=== PATIENT | male | born 1955 | race Caucasian/White ===

== ENCOUNTER 2024-09-01 16:03 | Inpatient (IN) | payer MEDICARE, OTHER ==
[2024-09-01] VITALS (10 sets, daily range): BP systolic 73–123; BP diastolic 32–53; TEMP 97.8; O2SAT 99–100
[~2024-09-01] VITALS: Ht 167.6 cm; Wt 70.8 kg
[2024-09-01] MEDS: IV NS 0.9% 500 ML BAG IV ONE (17:00)
[2024-09-01 17:27] LABS: BASOPHILS # (AUTO) 0.1 K/uL (0.0-0.2); BASOPHILS % (AUTO) 0.5 % (0.0-2.0); LYMPHOCYTES # (AUTO) 1.6 K/uL (0.8-4.8); LYMPHOCYTES % (AUTO) 13.5 % (20.0-44.0); MEAN CORPUSCULAR HEMOGLOBIN 31 PG (26.0-33.0); MEAN CORPUSCULAR HGB CONC 32 g/dl (31.0-36.0); MEAN CORPUSCULAR VOLUME 98 fL (80-96); MONOCYTES # (AUTO) 0.5 K/uL (0.1-1.30); MONOCYTES % (AUTO) 4.5 % (2.0-12.0); NEUTROPHILS # (AUTO) 9.5 K/uL (1.8-8.9); NEUTROPHILS % (AUTO) 81.5 % (43.0-81.0); PLATELET COUNT (AUTO) 194 K/uL (150-450); RED BLOOD CELL COUNT(AUTO) 1.63 MIL/uL (4.5-6.0); WHITE BLOOD COUNT (AUTO) 11.7 K/uL (4.3-11.0)
[2024-09-01 17:34] LABS: LACTIC ACID 1.6 mmol/L (0.4-2.0)
[2024-09-01 17:35] LABS: HEMATOCRIT 16 % (39-51); HEMOGLOBIN 5.1 g/dL (13.5-17.5)
[2024-09-01 17:59] LABS: BASOPHILS % (MANUAL) 0 % (0.0-2.0); EOSINOPHILS % (MANUAL) 0 % (0-4); LYMPHOCYTES % (MANUAL) 12 % (16-48); MONOCYTES % (MANUAL) 6 % (0-11.0); NEUTROPHILS % (MANUAL) 82 (42-76); PLATELET ESTIMATE ADEQUATE
[2024-09-01 18:38] LABS: ALANINE AMINOTRANSFERASE 9 U/L (12-78); ALBUMIN 2.9 g/dL (3.4-5.0); ALKALINE PHOSPHATASE 64 U/L (46-116); ASPARTATE AMINOTRANSFERASE 10 U/L (15-37); BILIRUBIN,DIRECT 0.2 mg/dL (0.0-0.2); BILIRUBIN,TOTAL 0.5 mg/dL (0.2-1.0); CALCIUM, SERUM 9.4 mg/dL (8.5-10.1); CARBON DIOXIDE 18 mmol/L (21-32); CHLORIDE 108 mmol/L (98-107); GLUCOSE 104 mg/dL (74-106); SODIUM SERUM 143 mmol/L (136-145); TOTAL PROTEIN, SERUM 6.7 g/dL (6.4-8.2)
[2024-09-01 18:40] LABS: CREATININE 8.4 mg/dL (0.6-1.3); POTASSIUM 8.1 mmol/L (3.5-5.1); UREA NITROGEN, BLOOD 166 mg/dL (7-18)
[2024-09-01] MEDS ORDERED: SODIUM ZIRCONIUM CYCLOSILICATE 10 GM POWD.PACK ONE (18:51)
[2024-09-01] MEDS ORDERED: SODIUM BICARBONATE SYR 50 MEQ/50 ML DISP.SYRIN ONE (18:51)
[2024-09-01] MEDS ORDERED: CALCIUM CHLORIDE 1,000 MG/10 ML DISP.SYRIN ONE (18:51)
[2024-09-01] MEDS ORDERED: INSULIN REGULAR, HUMAN 100 UNIT/ML 10 ML VIAL ONE (18:52)
[2024-09-01] MEDS ORDERED: DEXTROSE 50%-WATER 50 ML DISP.SYRIN ONE (18:53)
[2024-09-01] MEDS: ALBUTEROL FS 2.5 MG/3 ML VIAL.NEB NEB ONE (19:04)
[2024-09-01] MEDS ORDERED: ALBUTEROL FS 2.5 MG/3 ML VIAL.NEB ONE (19:06)
[2024-09-01] MEDS ORDERED: FINA5TAB4 PO (19:10)
[2024-09-01] MEDS ORDERED: ASPI-1169 PO (19:10)
[2024-09-01] MEDS ORDERED: LEVE750T10 PO (19:10)
[2024-09-01] MEDS ORDERED: ATEN100T PO (19:10)
[2024-09-01] MEDS ORDERED: DANT50CA PO (19:10)
[2024-09-01] MEDS ORDERED: LOSA50TA39 PO (19:10)
[2024-09-01] MEDS ORDERED: WARF2.5T85 PO (19:10)
[2024-09-01] MEDS ORDERED: TERA5CAP7 PO (19:10)
[2024-09-01] MEDS ORDERED: ATOR10TA PO (19:10)
[2024-09-01] MEDS: SODIUM ZIRCONIUM CYCLOSILICATE 10 GM POWD.PACK PO ONE (19:25)
[2024-09-01] MEDS: DEXTROSE 50%-WATER 50 ML DISP.SYRIN IV ONE (19:28)
[2024-09-01 19:29] LABS: INR > 10.00 (0.91-1.10); PROTHROMBIN TIME > 100.0 SECS (9.2-11.1)
[2024-09-01 19:30] LABS: PARTIAL THROMBOPLASTIN TIME 93.4 SEC (24.3-34.3)
[2024-09-01] MEDS ORDERED: Z GUARD REMEDY 4 OZ OINT TP PRN (19:30)
[2024-09-01] MEDS: CALCIUM CHLORIDE 1,000 MG/10 ML DISP.SYRIN IV ONE (19:30)
[2024-09-01] MEDS ORDERED: NOREPINEPHRINE 32 MG in IV NS 0.9% 218 ML IV PRN (19:30)
[2024-09-01] MEDS: INSULIN REGULAR, HUMAN 100 UNIT/ML 10 ML VIAL IV ONE (19:30)
[2024-09-01] MEDS: SODIUM BICARBONATE SYR 50 MEQ/50 ML DISP.SYRIN IV ONE (19:32)
[2024-09-01 20:35] LABS: APPEARANCE,URINE CLEAR (CLEAR); BILIRUBIN,URINE NEGATIVE (NEGATIVE); BLOOD, URINE 3+ Ery/uL (NEGATIVE); COLOR,URINE YELLOW (YELLOW); KETONES,URINE NEGATIVE (NEGATIVE); LEUKOCYTE ESTERASE ,URINE 1+ (NEGATIVE); NITRITE, URINE NEGATIVE (NEGATIVE); PROTEIN,URINE 1+ mg/dl (NEGATIVE); UGLUCOSE NEGATIVE (NEGATIVE); UROBILINOGEN,URINE 0.2 EU/dL (0.2)
[2024-09-01 20:53] LABS: ADD URINE CULTURE YES; BACTERIA,URINE Few /HPF (None Seen); RBC,URINE 21-50 /HPF (0-2)
[2024-09-01 21:56] LABS: ALANINE AMINOTRANSFERASE 9 U/L (12-78); ALBUMIN 2.8 g/dL (3.4-5.0); ALKALINE PHOSPHATASE 64 U/L (46-116); ASPARTATE AMINOTRANSFERASE 7 U/L (15-37); BILIRUBIN,TOTAL 0.3 mg/dL (0.2-1.0); CARBON DIOXIDE 21 mmol/L (21-32); CHLORIDE 111 mmol/L (98-107); GLUCOSE 116 mg/dL (74-106); SODIUM SERUM 148 mmol/L (136-145); TOTAL PROTEIN, SERUM 6.2 g/dL (6.4-8.2)
[2024-09-01] MEDS ORDERED: EPOETIN ALFA (10,000 UNIT) 10,000 UNIT/ML VIAL SQ ONE (22:00)
[2024-09-01 22:29] LABS: CALCIUM, SERUM 9.9 mg/dL (8.5-10.1)
[2024-09-01 22:57] LABS: CREATININE 8.2 mg/dL (0.6-1.3); POTASSIUM 7.3 mmol/L (3.5-5.1); UREA NITROGEN, BLOOD 166 mg/dL (7-18)
[2024-09-01] MEDS: NOREPINEPHRINE 8 MG in IV D5W 242 ML IV PRN (23:18)
[2024-09-02] VITALS (86 sets, daily range): BP systolic 62–163; BP diastolic 28–86; TEMP 97.4–99; O2SAT 85–100
[2024-09-02] MEDS: EPOETIN ALFA (10,000 UNIT) 10,000 UNIT/ML VIAL SQ ONE ×2 (02:30→08:50)
[2024-09-02 05:17] LABS: BASOPHILS # (AUTO) 0.1 K/uL (0.0-0.2); BASOPHILS % (AUTO) 0.2 % (0.0-2.0); EOSINOPHILS % (AUTO) 0.1 % (0.0-6.0); HEMATOCRIT 24 % (39-51); HEMOGLOBIN 7.9 g/dL (13.5-17.5); LYMPHOCYTES # (AUTO) 1.3 K/uL (0.8-4.8); LYMPHOCYTES % (AUTO) 4.8 % (20.0-44.0); MEAN CORPUSCULAR HEMOGLOBIN 30 PG (26.0-33.0); MEAN CORPUSCULAR HGB CONC 33 g/dl (31.0-36.0); MEAN CORPUSCULAR VOLUME 93 fL (80-96); MONOCYTES # (AUTO) 1.1 K/uL (0.1-1.30); MONOCYTES % (AUTO) 3.9 % (2.0-12.0); NEUTROPHILS # (AUTO) 24.9 K/uL (1.8-8.9); PLATELET COUNT (AUTO) 240 K/uL (150-450); WHITE BLOOD COUNT (AUTO) 27.4 K/uL (4.3-11.0)
[2024-09-02 05:32] LABS: ALBUMIN 3.3 g/dL (3.4-5.0); CALCIUM, SERUM 9.6 mg/dL (8.5-10.1); CREATININE 4.8 mg/dL (0.6-1.3); MAGNESIUM 2.6 mg/dL (1.8-2.4); PHOSPHORUS 3.3 mg/dL (2.5-4.9)
[2024-09-02] MEDS: FINASTERIDE (5 MG) 5 MG TABLET PO SCH (08:25)
[2024-09-02] MEDS: PANTOPRAZOLE 40 MG VIAL IV SCH (08:25)
[2024-09-02] MEDS: LEVETIRACETAM (250 MG) 250 MG TABLET PO SCH (08:26)
[2024-09-02] MEDS ORDERED: WARFARIN SODIUM 2.5 MG TABLET PO SCH (09:00)
[2024-09-02] MEDS ORDERED: DANTROLENE SODIUM 25 MG CAPSULE PO SCH (09:00)
[2024-09-02] MEDS: TERAZOSIN HCL 5 MG CAPSULE PO SCH (09:52)
[2024-09-02] MEDS: VANCOMYCIN 1 GM in IV D5W 250ml IV ONE (11:04)
[2024-09-02] MEDS: PIPERACILLIN /TAZOBACTAM 2.25 G in IV D5W 50 ML IV SCH (12:09)
[2024-09-02] MEDS: VANCOMYCIN 500 MG in IV D5W 100ml IV ONE (12:45)
[2024-09-02 16:34] LABS: INR 9.37 (0.91-1.10); PARTIAL THROMBOPLASTIN TIME 79.6 SEC (24.3-34.3); PROTHROMBIN TIME 85.8 SECS (9.2-11.1)
[2024-09-02] MEDS: ATORVASTATIN 10 MG TABLET PO SCH (21:44)
[2024-09-02 21:50] LABS: HIV-1 p24 ANTIGEN NON REACTIVE (NONREACTIVE); HIV-1/2 ANTIBODY NON REACTIVE (NONREACTIVE)
[2024-09-03] VITALS (61 sets, daily range): BP systolic 96–145; BP diastolic 17–85; TEMP 97.1–98.5; O2SAT 93–100
[2024-09-03 05:53] LABS: ALBUMIN 2.3 g/dL (3.4-5.0); CALCIUM, SERUM 8.5 mg/dL (8.5-10.1); CREATININE 5.6 mg/dL (0.6-1.3); MAGNESIUM 2.4 mg/dL (1.8-2.4); PHOSPHORUS 4.3 mg/dL (2.5-4.9); POTASSIUM 4.9 mmol/L (3.5-5.1)
[2024-09-03 05:58] LABS: BASOPHILS % (AUTO) 0.1 % (0.0-2.0); LYMPHOCYTES # (AUTO) 1.4 K/uL (0.8-4.8); LYMPHOCYTES % (AUTO) 12.3 % (20.0-44.0); MEAN CORPUSCULAR HEMOGLOBIN 31 PG (26.0-33.0); MEAN CORPUSCULAR HGB CONC 34 g/dl (31.0-36.0); MEAN CORPUSCULAR VOLUME 92 fL (80-96); MONOCYTES # (AUTO) 0.9 K/uL (0.1-1.30); MONOCYTES % (AUTO) 7.6 % (2.0-12.0); NEUTROPHILS # (AUTO) 9.3 K/uL (1.8-8.9); PLATELET COUNT (AUTO) 144 K/uL (150-450); RED CELL DISTRIBUTION WIDTH 14.2 % (11.5-15.0); WHITE BLOOD COUNT (AUTO) 11.6 K/uL (4.3-11.0)
[2024-09-03 06:10] LABS: BILIRUBIN,TOTAL 0.4 mg/dL (0.2-1.0)
[2024-09-03 06:37] LABS: HEMATOCRIT 14 % (39-51); HEMOGLOBIN 4.8 g/dL (13.5-17.5); RED BLOOD CELL COUNT(AUTO) 1.54 MIL/uL (4.5-6.0)
[2024-09-03 07:06] LABS: HEPATITIS B CORE AB, TOTAL Negative (Negative); HEPATITIS B SURFACE AB Non Reactive (.)
[2024-09-03 08:39] LABS: HEMOGLOBIN 4.9 g/dL (13.5-17.5)
[2024-09-03] MEDS ORDERED: PHYTONADIONE 10 MG in IV D5W 50 ML SQ ONE (09:30)
[2024-09-03] MEDS: PHYTONADIONE INJ 10 MG/1 ML AMPUL SQ ONE (09:57)
[2024-09-03 11:30] LABS: PROTHROMBIN TIME 65.7 SECS (9.2-11.1)
[2024-09-03 11:37] LABS: INR 7.04 (0.91-1.10); PARTIAL THROMBOPLASTIN TIME 79.5 SEC (24.3-34.3)
[2024-09-03 11:38] LABS: ANISOCYTOSIS 1+; BASOPHILS % (MANUAL) 0 % (0.0-2.0); EOSINOPHILS % (MANUAL) 0 % (0-4); HYPOCHROMASIA 1+; LYMPHOCYTES % (MANUAL) 11 % (16-48); MONOCYTES % (MANUAL) 6 % (0-11.0); NEUTROPHILS % (MANUAL) 83 (42-76); PLATELET ESTIMATE DECREASED
[2024-09-03 16:56] LABS: HEMOGLOBIN 9.3 g/dL (13.5-17.5)
[2024-09-03 17:14] LABS: PARTIAL THROMBOPLASTIN TIME 57.1 SEC (24.3-34.3); PROTHROMBIN TIME 42.4 SECS (9.2-11.1)
[2024-09-03 17:27] LABS: INR 4.41 (0.91-1.10)
[2024-09-04] VITALS (26 sets, daily range): BP systolic 100–166; BP diastolic 41–126; TEMP 96.5–98.3; O2SAT 96–100
[2024-09-04 08:23] LABS: BASOPHILS % (AUTO) 0.1 % (0.0-2.0); HEMATOCRIT 23 % (39-51); HEMOGLOBIN 8.1 g/dL (13.5-17.5); LYMPHOCYTES # (AUTO) 1.3 K/uL (0.8-4.8); MEAN CORPUSCULAR HEMOGLOBIN 33 PG (26.0-33.0); MEAN CORPUSCULAR HGB CONC 36 g/dl (31.0-36.0); MEAN CORPUSCULAR VOLUME 91 fL (80-96); MONOCYTES # (AUTO) 0.8 K/uL (0.1-1.30); MONOCYTES % (AUTO) 7.1 % (2.0-12.0); NEUTROPHILS # (AUTO) 8.6 K/uL (1.8-8.9); NEUTROPHILS % (AUTO) 80.8 % (43.0-81.0); PLATELET COUNT (AUTO) 139 K/uL (150-450); RED BLOOD CELL COUNT(AUTO) 2.48 MIL/uL (4.5-6.0); RED CELL DISTRIBUTION WIDTH 14.1 % (11.5-15.0); WHITE BLOOD COUNT (AUTO) 10.7 K/uL (4.3-11.0)
[2024-09-04 08:35] LABS: INR 1.91 (0.91-1.10); PARTIAL THROMBOPLASTIN TIME 43.2 SEC (24.3-34.3); PROTHROMBIN TIME 19.4 SECS (9.2-11.1)
[2024-09-04] MEDS: PANTOPRAZOLE 40 MG TABLET.DR PO SCH (08:37)
[2024-09-04 09:01] LABS: CALCIUM, SERUM 8.9 mg/dL (8.5-10.1); CREATININE 5.7 mg/dL (0.6-1.3); MAGNESIUM 2.4 mg/dL (1.8-2.4); POTASSIUM 4.7 mmol/L (3.5-5.1)
[2024-09-04 11:59] LABS: LYMPHOCYTES % (MANUAL) 12 % (16-48); NEUTROPHILS % (MANUAL) 80 (42-76)
[2024-09-04 12:00] LABS: ANISOCYTOSIS 1+; MONOCYTES % (MANUAL) 8 % (0-11.0); PLATELET ESTIMATE DECREASED
[2024-09-04] MEDS: VANCOMYCIN POST DIALYSIS 500MG IV PRN (16:30)
[2024-09-04 21:09] LABS: OCCULT BLOOD STOOL POSITIVE (NEGATIVE)
[2024-09-04] MEDS ORDERED: hydrALAZINE HCL IV 20 MG VIAL IV PRN (23:30)
[2024-09-05] VITALS (9 sets, daily range): BP systolic 131–165; BP diastolic 43–57; TEMP 96.5–98.2; O2SAT 96–98
[2024-09-05] MEDS: hydrALAZINE HCL IV 20 MG VIAL IV PRN (01:07)
[2024-09-05 04:52] LABS: BASOPHILS % (AUTO) 0.1 % (0.0-2.0); HEMATOCRIT 25 % (39-51); HEMOGLOBIN 8.7 g/dL (13.5-17.5); LYMPHOCYTES # (AUTO) 0.5 K/uL (0.8-4.8); LYMPHOCYTES % (AUTO) 5.3 % (20.0-44.0); MEAN CORPUSCULAR HEMOGLOBIN 31 PG (26.0-33.0); MEAN CORPUSCULAR HGB CONC 34 g/dl (31.0-36.0); MEAN CORPUSCULAR VOLUME 91 fL (80-96); MONOCYTES # (AUTO) 0.3 K/uL (0.1-1.30); MONOCYTES % (AUTO) 2.6 % (2.0-12.0); NEUTROPHILS # (AUTO) 9.1 K/uL (1.8-8.9); PLATELET COUNT (AUTO) 146 K/uL (150-450); RED BLOOD CELL COUNT(AUTO) 2.79 MIL/uL (4.5-6.0); RED CELL DISTRIBUTION WIDTH 13.8 % (11.5-15.0); WHITE BLOOD COUNT (AUTO) 9.9 K/uL (4.3-11.0)
[2024-09-05 05:20] LABS: CALCIUM, SERUM 8.8 mg/dL (8.5-10.1); CARBON DIOXIDE 25 mmol/L (21-32); CHLORIDE 103 mmol/L (98-107); CREATININE 4.1 mg/dL (0.6-1.3); GLUCOSE 132 mg/dL (74-106); MAGNESIUM 2.3 mg/dL (1.8-2.4); PHOSPHORUS 3.5 mg/dL (2.5-4.9); POTASSIUM 4.4 mmol/L (3.5-5.1); SODIUM SERUM 139 mmol/L (136-145); UREA NITROGEN, BLOOD 62 mg/dL (7-18)
[2024-09-05] MEDS: LOSARTAN POTASSIUM 50 MG TABLET PO SCH (12:15)
[2024-09-05] MEDS: ATENOLOL 50 MG TABLET PO SCH (12:15)
[2024-09-05 18:17] LABS: INR 1.11 (0.91-1.10); PARTIAL THROMBOPLASTIN TIME 26.5 SEC (24.3-34.3); PROTHROMBIN TIME 11.7 SECS (9.2-11.1)
[2024-09-06 01:12] VITALS: BP 133/56; TEMP 98.2; O2SAT 100
[2024-09-06 07:21] LABS: INR 1.08 (0.91-1.10); PARTIAL THROMBOPLASTIN TIME 25.4 SEC (24.3-34.3); PROTHROMBIN TIME 11.4 SECS (9.2-11.1)
[2024-09-06 07:22] LABS: CALCIUM, SERUM 8.8 mg/dL (8.5-10.1); CREATININE 4.9 mg/dL (0.6-1.3); MAGNESIUM 2.3 mg/dL (1.8-2.4); PHOSPHORUS 5.1 mg/dL (2.5-4.9); POTASSIUM 4.1 mmol/L (3.5-5.1)
[2024-09-06 07:29] LABS: BASOPHILS % (AUTO) 0.2 % (0.0-2.0); HEMATOCRIT 28 % (39-51); HEMOGLOBIN 9.3 g/dL (13.5-17.5); LYMPHOCYTES # (AUTO) 1.2 K/uL (0.8-4.8); MEAN CORPUSCULAR HEMOGLOBIN 31 PG (26.0-33.0); MEAN CORPUSCULAR HGB CONC 33 g/dl (31.0-36.0); MEAN CORPUSCULAR VOLUME 93 fL (80-96); MONOCYTES # (AUTO) 0.9 K/uL (0.1-1.30); MONOCYTES % (AUTO) 6.3 % (2.0-12.0); NEUTROPHILS # (AUTO) 11.6 K/uL (1.8-8.9); NEUTROPHILS % (AUTO) 84.5 % (43.0-81.0); PLATELET COUNT (AUTO) 161 K/uL (150-450); RED BLOOD CELL COUNT(AUTO) 3.02 MIL/uL (4.5-6.0); RED CELL DISTRIBUTION WIDTH 13.8 % (11.5-15.0); WHITE BLOOD COUNT (AUTO) 13.8 K/uL (4.3-11.0)
[2024-09-06] MEDS: EPOETIN ALFA (10,000 UNIT) 10,000 UNIT/ML VIAL SQ SCH (15:07)
[2024-09-06] MEDS: WARFARIN SODIUM 2.5 MG TABLET PO SCH (17:32)
[2024-09-06 20:00] VITALS: BP 129/42; TEMP 97.5; O2SAT 97
[2024-09-06] MEDS: ACETAMINOPHEN 325 MG TABLET PO PRN (23:10)
[2024-09-07] VITALS (7 sets, daily range): BP systolic 126–156; BP diastolic 44–104; TEMP 97.2–98.8; O2SAT 95–99
[2024-09-07 15:41] LABS: INR 1.1 (0.91-1.10); PROTHROMBIN TIME 11.6 SECS (9.2-11.1)
[2024-09-08] VITALS: BP 119/73; TEMP 98.4; O2SAT 94
[2024-09-08 04:00] VITALS: BP 146/50; TEMP 98.4; O2SAT 93
[2024-09-08 07:00] VITALS: BP 124/62; TEMP 98.6; O2SAT 98
[2024-09-08 08:05] LABS: BASOPHILS % (AUTO) 0.3 % (0.0-2.0); HEMATOCRIT 28 % (39-51); HEMOGLOBIN 9.3 g/dL (13.5-17.5); LYMPHOCYTES # (AUTO) 1.4 K/uL (0.8-4.8); LYMPHOCYTES % (AUTO) 10.4 % (20.0-44.0); MEAN CORPUSCULAR HEMOGLOBIN 31 PG (26.0-33.0); MEAN CORPUSCULAR HGB CONC 33 g/dl (31.0-36.0); MEAN CORPUSCULAR VOLUME 94 fL (80-96); MONOCYTES % (AUTO) 7.5 % (2.0-12.0); NEUTROPHILS # (AUTO) 10.7 K/uL (1.8-8.9); NEUTROPHILS % (AUTO) 81.8 % (43.0-81.0); PLATELET COUNT (AUTO) 145 K/uL (150-450); RED BLOOD CELL COUNT(AUTO) 2.99 MIL/uL (4.5-6.0); RED CELL DISTRIBUTION WIDTH 14.7 % (11.5-15.0); WHITE BLOOD COUNT (AUTO) 13.1 K/uL (4.3-11.0)
[2024-09-08 08:09] LABS: CALCIUM, SERUM 8.4 mg/dL (8.5-10.1); CREATININE 4.3 mg/dL (0.6-1.3); POTASSIUM 3.5 mmol/L (3.5-5.1)
[2024-09-08 08:14] LABS: ALBUMIN 2.7 g/dL (3.4-5.0); BILIRUBIN,TOTAL 0.4 mg/dL (0.2-1.0); TOTAL PROTEIN, SERUM 5.7 g/dL (6.4-8.2)
[2024-09-08 09:54] LABS: INR 1.08 (0.91-1.10); PROTHROMBIN TIME 11.4 SECS (9.2-11.1)
[2024-09-08 13:00] VITALS: BP 133/50; TEMP 98.4; O2SAT 98
[2024-09-08 16:00] VITALS: BP 131/55; TEMP 98.4; O2SAT 97
[2024-09-08 20:00] VITALS: BP 136/48; TEMP 97.7; O2SAT 96
[2024-09-09] VITALS: BP 144/47; TEMP 97.6; O2SAT 98
[2024-09-09 04:00] VITALS: BP 147/55; TEMP 97.7; O2SAT 98
[2024-09-09 06:43] LABS: BASOPHILS % (AUTO) 0.3 % (0.0-2.0); HEMATOCRIT 27 % (39-51); HEMOGLOBIN 9.2 g/dL (13.5-17.5); INR 1.11 (0.91-1.10); LYMPHOCYTES # (AUTO) 1.4 K/uL (0.8-4.8); LYMPHOCYTES % (AUTO) 12.7 % (20.0-44.0); MEAN CORPUSCULAR HEMOGLOBIN 31 PG (26.0-33.0); MEAN CORPUSCULAR HGB CONC 34 g/dl (31.0-36.0); MEAN CORPUSCULAR VOLUME 93 fL (80-96); MONOCYTES # (AUTO) 0.8 K/uL (0.1-1.30); MONOCYTES % (AUTO) 7.3 % (2.0-12.0); NEUTROPHILS # (AUTO) 8.6 K/uL (1.8-8.9); NEUTROPHILS % (AUTO) 79.7 % (43.0-81.0); PLATELET COUNT (AUTO) 150 K/uL (150-450); PROTHROMBIN TIME 11.7 SECS (9.2-11.1); RED BLOOD CELL COUNT(AUTO) 2.93 MIL/uL (4.5-6.0); RED CELL DISTRIBUTION WIDTH 14.5 % (11.5-15.0); WHITE BLOOD COUNT (AUTO) 10.8 K/uL (4.3-11.0)
[2024-09-09 11:30] VITALS: BP 140/45; O2SAT 97
[2024-09-09 16:00] VITALS: BP 138/45; TEMP 98.1; O2SAT 100
[2024-09-09] MEDS: WARFARIN SODIUM 2 MG TABLET PO STA (17:30)
[2024-09-09 20:00] VITALS: BP 101/50; TEMP 98.8; O2SAT 99
[2024-09-10] VITALS: BP 125/53; TEMP 98.2; O2SAT 96
[2024-09-10 07:09] LABS: BASOPHILS % (AUTO) 0.1 % (0.0-2.0); HEMATOCRIT 28 % (39-51); HEMOGLOBIN 9.6 g/dL (13.5-17.5); LYMPHOCYTES # (AUTO) 1.5 K/uL (0.8-4.8); LYMPHOCYTES % (AUTO) 12.7 % (20.0-44.0); MEAN CORPUSCULAR HEMOGLOBIN 32 PG (26.0-33.0); MEAN CORPUSCULAR HGB CONC 34 g/dl (31.0-36.0); MEAN CORPUSCULAR VOLUME 93 fL (80-96); MONOCYTES % (AUTO) 8.6 % (2.0-12.0); NEUTROPHILS # (AUTO) 9.1 K/uL (1.8-8.9); NEUTROPHILS % (AUTO) 78.6 % (43.0-81.0); PLATELET COUNT (AUTO) 135 K/uL (150-450); RED BLOOD CELL COUNT(AUTO) 3.05 MIL/uL (4.5-6.0); WHITE BLOOD COUNT (AUTO) 11.6 K/uL (4.3-11.0)
[2024-09-10 07:13] LABS: INR 1.27 (0.91-1.10); PROTHROMBIN TIME 13.3 SECS (9.2-11.1)
[2024-09-10 08:30] VITALS: BP 88/67; TEMP 97.7; O2SAT 98
[2024-09-10 13:00] VITALS: BP 117/48; TEMP 97.9; O2SAT 96
[2024-09-10 16:00] VITALS: BP 141/46; TEMP 97.9; O2SAT 97
[2024-09-10] MEDS: WARFARIN SODIUM 1 MG TABLET PO SCH (17:27)
[2024-09-10 20:00] VITALS: BP 124/40; TEMP 98.4; O2SAT 98
[2024-09-11] VITALS: BP 146/48; TEMP 98.2; O2SAT 98
[2024-09-11 01:30] VITALS: BP 146/48; TEMP 98.2; O2SAT 98
[2024-09-11 04:00] VITALS: BP 163/75; TEMP 98.4; O2SAT 97
[2024-09-11 07:30] LABS: BASOPHILS % (AUTO) 0.2 % (0.0-2.0); HEMATOCRIT 29 % (39-51); HEMOGLOBIN 9.8 g/dL (13.5-17.5); LYMPHOCYTES # (AUTO) 1.8 K/uL (0.8-4.8); LYMPHOCYTES % (AUTO) 16.6 % (20.0-44.0); MEAN CORPUSCULAR HEMOGLOBIN 32 PG (26.0-33.0); MEAN CORPUSCULAR HGB CONC 34 g/dl (31.0-36.0); MEAN CORPUSCULAR VOLUME 94 fL (80-96); MONOCYTES # (AUTO) 1.1 K/uL (0.1-1.30); NEUTROPHILS # (AUTO) 7.9 K/uL (1.8-8.9); NEUTROPHILS % (AUTO) 73.2 % (43.0-81.0); PLATELET COUNT (AUTO) 163 K/uL (150-450); RED BLOOD CELL COUNT(AUTO) 3.08 MIL/uL (4.5-6.0); RED CELL DISTRIBUTION WIDTH 15.3 % (11.5-15.0); WHITE BLOOD COUNT (AUTO) 10.7 K/uL (4.3-11.0)
[2024-09-11 07:32] LABS: INR 1.3 (0.91-1.10); PROTHROMBIN TIME 13.5 SECS (9.2-11.1)
[2024-09-11 08:00] VITALS: BP 138/66; TEMP 98.2; O2SAT 97
[2024-09-11 08:28] LABS: CALCIUM, SERUM 8.4 mg/dL (8.5-10.1); CREATININE 4.8 mg/dL (0.6-1.3); PHOSPHORUS 4.9 mg/dL (2.5-4.9)
[2024-09-11 16:00] VITALS: BP 133/56; TEMP 98.1; O2SAT 96
[2024-09-11] MEDS: WARFARIN SODIUM 5 MG TABLET PO SCH (17:44)
[2024-09-11 20:00] VITALS: BP 119/52; TEMP 97.5; O2SAT 94
[2024-09-12 07:00] VITALS: BP 141/49; TEMP 97.9; O2SAT 97
[2024-09-12 07:02] LABS: BASOPHILS % (AUTO) 0.2 % (0.0-2.0); HEMATOCRIT 29 % (39-51); HEMOGLOBIN 9.8 g/dL (13.5-17.5); LYMPHOCYTES # (AUTO) 1.6 K/uL (0.8-4.8); LYMPHOCYTES % (AUTO) 17.9 % (20.0-44.0); MEAN CORPUSCULAR HEMOGLOBIN 31 PG (26.0-33.0); MEAN CORPUSCULAR HGB CONC 34 g/dl (31.0-36.0); MEAN CORPUSCULAR VOLUME 93 fL (80-96); MONOCYTES % (AUTO) 10.6 % (2.0-12.0); NEUTROPHILS # (AUTO) 6.5 K/uL (1.8-8.9); NEUTROPHILS % (AUTO) 71.3 % (43.0-81.0); PLATELET COUNT (AUTO) 159 K/uL (150-450); RED BLOOD CELL COUNT(AUTO) 3.11 MIL/uL (4.5-6.0); RED CELL DISTRIBUTION WIDTH 14.8 % (11.5-15.0); WHITE BLOOD COUNT (AUTO) 9.2 K/uL (4.3-11.0)
[2024-09-12 07:13] LABS: INR 1.63 (0.91-1.10); PROTHROMBIN TIME 16.7 SECS (9.2-11.1)
[2024-09-12 16:00] VITALS: BP 130/47; TEMP 97.7; O2SAT 98
[2024-09-12] MEDS ORDERED: WARFARIN SODIUM 5 MG TABLET PO SCH (17:00)
[2024-09-12] MEDS: WARFARIN SODIUM 2 MG TABLET PO SCH (17:25)
[2024-09-12 21:14] VITALS: BP 130/63; TEMP 98.4; O2SAT 100
[2024-09-13 07:02] LABS: INR 2.23 (0.91-1.10); PROTHROMBIN TIME 22.4 SECS (9.2-11.1)
[2024-09-13 07:03] LABS: BASOPHILS % (AUTO) 0.3 % (0.0-2.0); HEMATOCRIT 29 % (39-51); HEMOGLOBIN 9.6 g/dL (13.5-17.5); LYMPHOCYTES % (AUTO) 23.2 % (20.0-44.0); MEAN CORPUSCULAR HEMOGLOBIN 31 PG (26.0-33.0); MEAN CORPUSCULAR HGB CONC 34 g/dl (31.0-36.0); MEAN CORPUSCULAR VOLUME 93 fL (80-96); MONOCYTES % (AUTO) 11.8 % (2.0-12.0); NEUTROPHILS # (AUTO) 5.6 K/uL (1.8-8.9); NEUTROPHILS % (AUTO) 64.7 % (43.0-81.0); PLATELET COUNT (AUTO) 158 K/uL (150-450); RED BLOOD CELL COUNT(AUTO) 3.08 MIL/uL (4.5-6.0); RED CELL DISTRIBUTION WIDTH 14.9 % (11.5-15.0); WHITE BLOOD COUNT (AUTO) 8.7 K/uL (4.3-11.0)
[2024-09-13 07:13] LABS: CALCIUM, SERUM 8.6 mg/dL (8.5-10.1); CREATININE 4.3 mg/dL (0.6-1.3); MAGNESIUM 1.9 mg/dL (1.8-2.4); PHOSPHORUS 4.5 mg/dL (2.5-4.9); POTASSIUM 2.9 mmol/L (3.5-5.1)
[2024-09-13 08:00] VITALS: BP 134/50; TEMP 97.5; O2SAT 98
[2024-09-13] MEDS: POTASSIUM CHLORIDE 10 MEQ TABLET.SA PO ONE (15:08)
[2024-09-13 16:00] VITALS: BP 139/46; TEMP 98.2; O2SAT 97
[2024-09-13] MEDS: WARFARIN SODIUM 2.5 MG TABLET PO SCH (16:35)
[2024-09-13 20:00] VITALS: BP_SYST 127; BP_SYST 94; BP_DIAS 57; BP_DIAS 73; TEMP 97.5; TEMP 97.7; O2SAT 98; O2SAT 99
[2024-09-14 07:00] VITALS: BP 106/37; TEMP 98.1; O2SAT 99
[2024-09-14 07:38] LABS: BASOPHILS % (AUTO) 0.1 % (0.0-2.0); HEMATOCRIT 29 % (39-51); HEMOGLOBIN 9.7 g/dL (13.5-17.5); LYMPHOCYTES # (AUTO) 1.2 K/uL (0.8-4.8); LYMPHOCYTES % (AUTO) 9.1 % (20.0-44.0); MEAN CORPUSCULAR HEMOGLOBIN 31 PG (26.0-33.0); MEAN CORPUSCULAR HGB CONC 34 g/dl (31.0-36.0); MEAN CORPUSCULAR VOLUME 92 fL (80-96); MONOCYTES # (AUTO) 1.1 K/uL (0.1-1.30); MONOCYTES % (AUTO) 8.2 % (2.0-12.0); NEUTROPHILS # (AUTO) 11.3 K/uL (1.8-8.9); NEUTROPHILS % (AUTO) 82.6 % (43.0-81.0); PLATELET COUNT (AUTO) 165 K/uL (150-450); RED BLOOD CELL COUNT(AUTO) 3.14 MIL/uL (4.5-6.0); RED CELL DISTRIBUTION WIDTH 14.6 % (11.5-15.0); WHITE BLOOD COUNT (AUTO) 13.7 K/uL (4.3-11.0)
[2024-09-14 07:50] LABS: INR 2.68 (0.91-1.10); PROTHROMBIN TIME 26.6 SECS (9.2-11.1)
[2024-09-14 08:32] VITALS: BP 106/52
== END 2024-09-14 16:48 | disposition home health service (06) | DRG 871 ==
LOC: ER 16:08 → TELE-TD 19:43 → ICU 20:24 → TELE 09-05 05:49 → MED 09-11 10:39
PROVIDERS: ADMIT Nurse Practitioner Family; ATTEND Nurse Practitioner Family
PROC: 5A1D70Z Performance of Urinary Filtration, Intermittent, Less than 6 Hours Per Day (ICD-10-PCS; principal; 2024-09-01)
PROC: 30233N1 Transfusion of Nonautologous Red Blood Cells into Peripheral Vein, Percutaneous Approach (ICD-10-PCS; 2024-09-01)
PROC: 30233K1 Transfusion of Nonautologous Frozen Plasma into Peripheral Vein, Percutaneous Approach (ICD-10-PCS; 2024-09-03)
DX: A41.9 Sepsis, unspecified organism (principal); J18.9 Pneumonia, unspecified organism; N18.6 End stage renal disease; R65.21 Severe sepsis with septic shock; K92.2 Gastrointestinal hemorrhage, unspecified; I12.0 Hypertensive chronic kidney disease with stage 5 chronic kidney disease or end stage renal disease; E44.0 Moderate protein-calorie malnutrition; N39.0 Urinary tract infection, site not specified; E87.20 Acidosis, unspecified; E87.5 Hyperkalemia; D64.9 Anemia, unspecified; N40.0 Benign prostatic hyperplasia without lower urinary tract symptoms; I48.91 Unspecified atrial fibrillation; Z79.01 Long term (current) use of anticoagulants; Z79.82 Long term (current) use of aspirin; Z79.899 Other long term (current) drug therapy; Z99.2 Dependence on renal dialysis; Z91.199 Patient's noncompliance with other medical treatment and regimen due to unspecified reason; Z91.158 Patient's noncompliance with renal dialysis for other reason; R56.9 Unspecified convulsions; E88.09 Other disorders of plasma-protein metabolism, not elsewhere classified; B96.89 Other specified bacterial agents as the cause of diseases classified elsewhere; M89.8X9 Other specified disorders of bone, unspecified site; E87.6 Hypokalemia; E78.5 Hyperlipidemia, unspecified; R79.1 Abnormal coagulation profile; R26.9 Unspecified abnormalities of gait and mobility
CPT/HCPCS: 36415; 71045-TC; 71250-TC; 76770-TC; 80048-TC; 80053-TC; 80076-TC; 80202-TC; 81001; 82040-TC; 82272-TC; 82962-TC; 83605-TC; 83735-TC; 83880; 84100-TC; 84132-TC; 84484-TC; 85025-TC; 85027-TC; 85610-TC; 85730-TC; 86704; 86706; 86803; 86850-TC; 87040-TC; 87081-TC; 87086-TC; 87340; 87806; 90935-TC; 92526; 92611-TC; A4223; G0378; J0360; J0885; J1815; J2470; J2543; J3370; J3430; J3490; J7030; J7040; J7050; J7060; P9016; P9017